=== PATIENT | female | born 1985 | race Caucasian/White ===

== ENCOUNTER 2019-01-19 09:32 | Emergency (ER) | payer BC ==
--- NOTE | 2019-01-19 10:19 | ED ---
GI/ HPI - HPI Summary HPI Summary: Patient is a 33 y/o female who presents to the ED c/o flank pain. This morning, she suddenly had severe left flank pain that radiates across her entire abdomen. Patient rates her initial pain as a 10/10 in severity, and her current pain as a 6/10. Pain is made worse with movement, ambulating, and deep breaths. Patient also c/o constipation, mild nausea due to pain, and SOB secondary to pain with breathing. Her last BM was 4-5 days ago and was scant. She denies any dysuria, hematuria, vomiting, fever, rash, LE edema, rhinorrhea, sore throat, CP , or cough. She has had issues with constant constipation that have been worsening over the past two months. She was told her colon moves slowly. Patient normally c/o intermittent cramping abdominal pain due to the constipation. She has tried probiotics, fiber, and laxatives all without relief. Patient is currently on Linzess. She was on a liquid diet last week. LNMP 1-2 weeks ago. - History of Current Complaint Chief Complaint: EDFlankPain Time Seen by Provider: 01/19/19 10:09 Stated Complaint: SIDE/ABD CRAMPING PER PT Hx Obtained From: Patient Onset/Duration: Started Hours Ago - This morning, Still Present Timing: Constant Severity: Severe - 10/10 Current Severity: Moderate - 6/10 Pain Intensity: 6 Location of Pain: Flank - left Associated Signs and Symptoms: Positive: Nausea, Flank Pain - left. Negative: Vomiting, Fever, Hematuria, Dysuria, Chills, Cough, Chest Pain Aggravating Factor(s): Movement, Deep Breaths, Walking/Exertion Alleviating Factor(s): Nothing - Allergy/Home Medications Allergies/Adverse Reactions: Allergies Allergy/AdvReac Type Severity Reaction Status Date / Time No Known Allergies Allergy Verified 01/19/19 09:38 PMH/Surg Hx/FS Hx/Imm Hx Endocrine/Hematology History: Reports: Other Endocrine/Hematological Disorders - Factor V Leiden Denies: Hx Diabetes Cardiovascular History: Denies: Hx Hypertension GI History: Reports: Other GI Disorders - constant constipation Infectious Disease History: No Infectious Disease History: Denies: Traveled Outside the [place] in Last 30 Days - Family History Known Family History: Positive: Blood Disorder - Factor V Leiden, Other - diverticulitis - Social History Alcohol Use: None Hx Substance Use: No Substance Use Type: Reports: None Hx Tobacco Use: No Smoking Status (MU): Never Smoked Tobacco Review of Systems Negative: Fever Negative: Sore Throat, Nasal Discharge Negative: Chest Pain Positive: Shortness Of Breath - secondary to pain with breathing. Negative: Cough Positive: Abdominal Pain - intermittent cramping, Nausea - mild, due to pain, Other - constipation. Negative: Vomiting Positive: flank pain - left. Negative: dysuria, hematuria Negative: Edema - LE Negative: Rash All Other Systems Reviewed And Are Negative: Yes Physical Exam - Summary Physical Exam Summary: Constitutional: Well-developed, Well-nourished, Alert. (-) Distressed Skin: Warm, Dry HENT: Normocephalic; Atraumatic Eyes: Conjunctiva normal Neck: Musculoskeletal ROM normal neck. (-) JVD, (-) Stridor, (-) Tracheal deviation Cardio: Rhythm regular, rate normal, Heart sounds normal; Intact distal pulses; The pedal pulses are 2+ and symmetric. Radial pulses are 2+ and symmetric. (-) Murmur Pulmonary/Chest wall: Effort normal. (-) Respiratory distress, (-) Wheezes, (-) Rales Abd: Soft, (+) Mild diffuse tenderness worse in the suprapubic region, (-) Distension, (-) Guarding, (-) Rebound, (-) CVA tenderness Musculoskeletal: (-) Edema Lymph: (-) Cervical adenopathy Neuro: Alert, Oriented x3 Psych: Mood and affect Normal Triage Information Reviewed: Yes Vital Signs On Initial Exam: Initial Vitals Temp Pulse Resp BP Pulse Ox 98.5 F 68 19 125/77 96 01/19/19 09:35 01/19/19 09:35 01/19/19 09:35 01/19/19 09:35 01/19/19 09:35 Vital Signs Reviewed: Yes Diagnostics - Vital Signs Vital Signs Temp Pulse Resp BP Pulse Ox 01/19/19 09:35 98.5 F 68 19 125/77 96 - Laboratory Result Diagrams: 01/19/19 10:30 01/19/19 10:30 Lab Statement: Any lab studies that have been ordered have been reviewed, and results considered in the medical decision making process. - Radiology Abdomen XR Radiology Interpretation Completed By: Radiologist Summary of Radiographic Findings: NO EVIDENCE FOR OBSTRUCTION. ED physician reviewed radiology report. - Ultrasound No standard instances Ultrasound Interpretation Completed By: Radiologist Summary of Ultrasound Findings: Renal US: NEGATIVE EXAM, NO EVIDENCE FOR HYDRONEPHROSIS. ED physician reviewed radiology report. Re-Evaluation - Re-Evaluation First Eval Re-Evaluation Time: 11:13 Change: Improved Comment: Pt is refusing medication because she is now feeling better. Her pain is now rated a 4/10 in severity. Second Eval Re-Evaluation Time: 12:08 Change: Improved Comment: Pt feels much better. She would like to be referred to an flexographic press set up operator, because she believes her sx might be due to a food allergy. GIGU Course/Dx - Course Course Of Treatment: Patient is a 33 y/o female who presents to the ED c/o left flank pain since this morning. Patient also c/o constipation, mild nausea due to pain, and SOB secondary to pain with breathing. A physical exam revealed mild diffuse tenderness worse in the suprapubic region. An abdomen XR and renal US were both negative. In the course patient was offered Flexeril, Bentyl, and Toradol, however declined medications because her pain improved. Final dx are constipation and abdominal pain. Her pain is improved and she is discharged to follow up with Krunal Blankenship MD regarding a possible food allergy. Patient is agreeable with this plan. - Diagnoses Provider Diagnoses: Constipation, Abdominal pain Discharge - Sign-Out/Discharge Documenting (check all that apply): Patient Departure - Discharge Patient Received Moderate/Deep Sedation with Procedure: No - Discharge Plan Condition: Good Disposition: HOME Patient Education Materials: Constipation (ED), Chronic Abdominal Pain (ED) Print Language: IRAQI Referrals: Krunal Blankenship MD [Medical Doctor] - Additional Instructions: RETURN TO THE ED WITH ANY NEW OR WORSENING SYMPTOMS. - Billing Disposition and Condition Condition: GOOD Disposition: Home - Attestation Statements Document Initiated by Scribe: Yes Documenting Scribe: Chyna Brock Provider For Whom Alisson is Documenting (Include Credential): Marcy Rhodes MD Scribe Attestation: Chyna Lyon scribed for Marcy Lamb MD on 01/19/19 at 2250. Scribe Documentation Reviewed: Yes Provider Attestation: The documentation as recorded by the Chyna stevens accurately reflects the service I personally performed and the decisions made by me, Marcy Rhodes MD Status of Scribe Document: Viewed
[2019-01-19] MEDS ORDERED: Dicyclomine CAP* 10 MG PO ONE (10:21)
[2019-01-19] MEDS ORDERED: Ketorolac INJ* 30 MG/ML 1 ML VIAL IV PUSH ONE (10:21)
[2019-01-19] MEDS ORDERED: Cyclobenzaprine TAB* 10 MG PO ONE (10:21)
[2019-01-19 10:50] LABS: ABS Basophils 0 10^3/ul (0-0.2); ABS Eosinophils 0 10^3/ul (0-0.6); ABS Lymphocytes 1.3 10^3/ul (1.0-4.8); ABS Monocytes 0.5 10^3/ul (0-0.8); ABS Neutrophils 3.2 10^3/ul (1.5-7.7); ABS Nucleated RBC 0 10^3/ul; Eosinophil % 0 %; Hematocrit 39 % (35-47); Hemoglobin 12.9 g/dl (12.0-16.0); Lymphocyte % 25.6 %; Mean Corpuscular HGB Conc 33 g/dl (31-36); Mean Corpuscular Hemoglobin 29 pg (27-31); Mean Corpuscular Volume 87 fL (80-97); Mean Platelet Volume 9.5 fL (7.4-10.4); Nucleated Red Blood Cells % 0.1; Platelet Count 195 10^3/ul (150-450); Red Blood Count 4.43 10^6/ul (4.00-5.40); Red Cell Distribution Width 14 % (10.5-15)
[2019-01-19 11:13] LABS: HCG Pregnancy < 0.60 mIU/mL
[2019-01-19 11:27] LABS: ALT 40 U/L (7-52); AST 19 U/L (13-39); Albumin 4.3 g/dL (3.2-5.2); Albumin/Globulin Ratio 1.8 (1-3); Alkaline Phosphatase 48 U/L (34-104); Anion Gap 6 mmol/L (2-11); BUN/Creatinine Ratio 36.8 (8-20); Blood Urea Nitrogen 21 mg/dL (6-24); C Reactive Protein < 1.00 mg/L (<8.01); CO2 Carbon Dioxide 23 mmol/L (22-32); Chloride 106 mmol/L (101-111); EGFR African American 149.7 (>60); EGFR Non-African American 123.7 (>60); Globulin 2.4 g/dL (2-4); Glucose 85 mg/dL (70-100); Potassium 4.1 mmol/L (3.5-5.0); Sodium 135 mmol/L (135-145); Total Protein 6.7 g/dL (6.4-8.9)
[2019-01-19 11:39] LABS: Urine Appearance Cloudy; Urine Bilirubin Negative (Negative); Urine Blood Negative (Negative); Urine Color Yellow; Urine Glucose Negative (Negative); Urine Ketones Negative (Negative); Urine Nitrite Negative (Negative); Urine Protein Negative (Negative); Urine Specific Gravity 1.014 (1.010-1.030); Urine Urobilinogen Negative (Negative)
[2019-01-19 12:29] VITALS: BP 101/68
== END 2019-01-19 12:30 | disposition home or self-care (01) ==
LOC: ED 09:32
DX: K59.00 Constipation, unspecified (principal); R10.30 Lower abdominal pain, unspecified; R11.0 Nausea; R06.02 Shortness of breath
CPT/HCPCS: 36415; 74019; 76775; 80053; 81003; 83605; 83690; 84702; 85025; 86140; 99282; A9270-GY; J1885